=== PATIENT | male | born 1960 | race Caucasian/White ===

== ENCOUNTER 2016-12-30 21:14 | Inpatient (IN) | payer SELFPAY ==
[2016-12-30] MEDS ORDERED: VALIUM10 M1 PO (21:29)
[2016-12-30] MEDS ORDERED: CYMBALTA60 M1 PO (21:29)
[2016-12-30] MEDS ORDERED: HYDROMORPHONE IM (21:31)
[2016-12-30] MEDS ORDERED: METOPROLOL SUCC25 M1 PO (21:32)
[2016-12-30] MEDS ORDERED: OXYCONTIN15 M1 PO (21:33)
[2016-12-30 21:51] LABS: BASO % 0.3 % (0-2); EOS % 3.2 % (0-7); EOSINOPHIL ABSOLUTE COUNT 0.2 tho/cmm (0.0-0.7); HCT-HEMATOCRIT 46.9 % (36.0-53.5); HGB-HEMOGLOBIN 16.2 gm/dl (13.5-17.0); IMMATURE GRANULOCYTES ABSOLUTE 0.01 tho/cmm (0-0.03); IMMATURE GRANULOCYTES PERCENT 0.1 % (0-0.3); LYMPH % 15.7 % (20-45); LYMPH ABSOLUTE COUNT 1.2 tho/cmm (0.8-4.5); MCHC MEAN CORPUSCULAR HGB CONC 34.5 % (32.0-36.0); MCV (MEAN CELL VOLUME) 81.1 fl (82.0-96.0); MEAN PLATELET VOLUME 9.8 cmc (9.4-12.4); MONO % 7.8 % (0-12); MONOCYTE ABSOLUTE COUNT 0.6 tho/cmm (0.0-1.2); NEUTROPHIL ABSOLUTE COUNT 5.4 tho/cmm (1.6-8.0); NEUTROPHIL-AUTOMATED 5.4 tho/cmm (1.6-8.0); NEUTROPHILS % 72.9 % (40-80); PLATELET COUNT 226 tho/cmm (150-450); RED BLOOD COUNT 5.78 mil/cmm (4.40-5.70); RED CELL DISTRIBUTION WIDTH 14.7 % (12.4-16.4); WHITE BLOOD COUNT 7.4 tho/cmm (4.0-10.0)
[2016-12-30 21:58] LABS: URINE BILIRUBIN NEGATIVE (NEG); URINE BLOOD NEGATIVE (NEG); URINE GLUCOSE (UA) NEGATIVE (NEG); URINE KETONE NEGATIVE (NEG); URINE LEUKOCYTE ESTERASE NEGATIVE (NEG); URINE NITRITE NEGATIVE (NEG); URINE PROTEIN NEGATIVE (NEG); URINE SPECIFIC GRAVITY 1.005 (1.003-1.030)
[2016-12-30 21:59] LABS: URINE APPEARANCE CLEAR; URINE COLOR PALE YELLOW
[2016-12-30 22:05] LABS: ANION GAP 10 mmol/L (0-20); BLOOD UREA NITROGEN 13 mg/dl (6-24); CALCIUM 9.1 mg/dl (8.5-10.5); CARBON DIOXIDE-VENOUS 27 mmol/L (22-32); CHLORIDE 104 mmol/l (96-110); CREATININE 1.06 mg/dl (0.60-1.30); GLUCOSE 110 mg/dL (70-110); POTASSIUM 3.9 mmol/L (3.7-5.1); SODIUM 137 mmol/L (135-145); eGFR VALUE FOR BLACK >90 mL/Min
[2017-01-01 06:18] LABS: CHLORIDE 104 mmol/l (96-110); SODIUM 137 mmol/L (135-145)
[2017-01-01 06:26] LABS: ANION GAP 12 mmol/L (0-20); BLOOD UREA NITROGEN 21 mg/dl (6-24); CALCIUM 9.2 mg/dl (8.5-10.5); CARBON DIOXIDE-VENOUS 25 mmol/L (22-32); CHOLESTEROL 198 mg/dl (120-200); CREATININE 1.03 mg/dl (0.60-1.30); GLUCOSE 105 mg/dL (70-110); HDL CHOLESTEROL 39 mg/dl (40-60); LDL CHOLESTEROL 141 mg/dl (0-99); TRIGLYCERIDES 91 mg/dl (<149); VLDL 18 mg/dl (0-30); eGFR VALUE FOR BLACK >90 mL/Min
[2017-01-01 13:38] LABS: BASO % 0.3 % (0-2); EOS % 2.1 % (0-7); EOSINOPHIL ABSOLUTE COUNT 0.2 tho/cmm (0.0-0.7); HCT-HEMATOCRIT 47.7 % (36.0-53.5); HGB-HEMOGLOBIN 16.3 gm/dl (13.5-17.0); IMMATURE GRANULOCYTES ABSOLUTE 0.03 tho/cmm (0-0.03); IMMATURE GRANULOCYTES PERCENT 0.4 % (0-0.3); LYMPH % 9.4 % (20-45); LYMPH ABSOLUTE COUNT 0.7 tho/cmm (0.8-4.5); MCH (MEAN CORPUSCULAR HGB) 27.9 pg (28.0-32.0); MCHC MEAN CORPUSCULAR HGB CONC 34.2 % (32.0-36.0); MCV (MEAN CELL VOLUME) 81.5 fl (82.0-96.0); MEAN PLATELET VOLUME 9.6 cmc (9.4-12.4); MONO % 12.3 % (0-12); MONOCYTE ABSOLUTE COUNT 0.9 tho/cmm (0.0-1.2); NEUTROPHIL ABSOLUTE COUNT 5.7 tho/cmm (1.6-8.0); NEUTROPHIL-AUTOMATED 5.7 tho/cmm (1.6-8.0); NEUTROPHILS % 75.5 % (40-80); PLATELET COUNT 196 tho/cmm (150-450); RED BLOOD COUNT 5.85 mil/cmm (4.40-5.70); RED CELL DISTRIBUTION WIDTH 14.7 % (12.4-16.4); WHITE BLOOD COUNT 7.6 tho/cmm (4.0-10.0)
[2017-01-01 13:44] LABS: PROTHROMBIN TIME 11.9 SECONDS (9.0-13.6)
[2017-01-01 13:56] LABS: ALB/GLOB RATIO 0.9 (0.8-2.0); ALBUMIN 3.6 g/dl (3.5-5.0); BILIRUBIN,DIRECT 0.2 mg/dl (0.0-0.3); BILIRUBIN,INDIRECT 0.8 mg/dL (0.0-1.0)
[2017-01-04 06:23] LABS: BLOOD UREA NITROGEN 24 mg/dl (6-24); CREATININE 1.02 mg/dl (0.60-1.30); eGFR VALUE FOR BLACK >90 mL/Min
[2017-01-04] MEDS ORDERED: NICODERM CQ1 EAC1 TD (12:12)
[2017-01-04] MEDS ORDERED: NORVASC10 M2 PO (12:16)
[2017-01-04] MEDS ORDERED: PROTONIX40 M2 PO (12:17)
== END 2017-01-04 14:15 | DRG 287 ==
LOC: EDMED 21:14 → EMR2 23:03 → PCUB 12-31 00:12
PROVIDERS: Emergency Medicine; Internal Medicine; Internal Medicine Cardiovascular Disease; Surgery; ADMIT Internal Medicine Cardiovascular Disease
PROC: 5A09357 Assistance with Respiratory Ventilation, Less than 24 Consecutive Hours, Continuous Positive Airway Pressure (ICD-10-PCS; principal; 2017-01-01)
PROC: 4A023N7 Measurement of Cardiac Sampling and Pressure, Left Heart, Percutaneous Approach (ICD-10-PCS; 2017-01-03)
PROC: B2111ZZ Fluoroscopy of Multiple Coronary Arteries using Low Osmolar Contrast (ICD-10-PCS; 2017-01-03)
DX: I20.0 Unstable angina (principal); F17.210 Nicotine dependence, cigarettes, uncomplicated; I16.9 Hypertensive crisis, unspecified; G89.29 Other chronic pain; M54.9 Dorsalgia, unspecified; Z85.46 Personal history of malignant neoplasm of prostate; Z88.0 Allergy status to penicillin; K80.20 Calculus of gallbladder without cholecystitis without obstruction
CPT/HCPCS: A9500; A9537; C9113; G8987-GO-CH; G8987-GP-CH; G8988-GO-CH; G8988-GP-CH; G8989-GO-CH; G8989-GP-CH; J1170; J1644; J2250; J2270; J2405; J2785; J3010; J7050; Q9967